=== PATIENT | male | born 1990 | race Hispanic/Latino ===

== ENCOUNTER 2023-01-04 13:48 | Emergency (ER) | payer SELFPAY ==
[2023-01-04] MEDS ORDERED: Lidocaine 1% PF 5 ML VIAL ONE (15:36)
== END 2023-01-04 16:16 | disposition home or self-care (01) ==
LOC: ERS 13:48
DX: L02.811 Cutaneous abscess of head [any part, except face] (principal); L03.811 Cellulitis of head [any part, except face]
CPT/HCPCS: 10060

== ENCOUNTER 2023-07-10 09:26 | Emergency (ER) | payer OTHER, SELFPAY ==
[2023-07-10] MEDS ORDERED: Bacitracin 1 PK ONE ×2 (10:32→11:26)
[2023-07-10] MEDS ORDERED: Lidocaine 1% PF 5 ML VIAL ONE (10:35)
[2023-07-10] MEDS ORDERED: CEFAZOLIN 2 GM VIAL ONE (12:10)
== END 2023-07-10 12:42 | disposition home or self-care (01) ==
LOC: ERS 09:26
DX: S61.212A Laceration without foreign body of right middle finger without damage to nail, initial encounter (principal); Z55.6 Problems related to health literacy; W31.2XXA Contact with powered woodworking and forming machines, initial encounter
CPT/HCPCS: 12001; 96372